=== PATIENT | male | born 1960 | race Caucasian/White ===

== ENCOUNTER 2022-05-09 13:01 | Emergency (ER) | payer SELFPAY ==
--- NOTE | 2022-05-09 14:12 | RAD REPORT ---
EXAM DESCRIPTION: CT - Stone Protocol - 05/09/2022 1:56 pm CLINICAL HISTORY: left flank pain COMPARISON: No comparisons TECHNIQUE: Axial 3 mm thick images were obtained without oral or IV contrast. The [id number] span s the entirety of the system including uppermost abdomen and lung bases. All CT scans are performed using dose optimization technique as appropriate and may include automated exposure control or mA/KV adjustment according to patient size. FINDINGS: No hydronephrosis is present and no obstructing ureteral calculi. A nonobstructing 3 mm ca lcification is present upper pole of the left kidney and in the midportion of the left kidney. No lenny picious renal masses. Isodense masses and pyelonephritis are not excluded on a stone protocol CT scan . No significant adrenal finding. No urinary bladder suspicious finding. Imaged portions of the liver, spleen and pancreas show no suspicious findings on non-contrast imaging . No gallbladder or biliary tree abnormality identified. Liver attenuation is borderline to mildly fa tty infiltrated. No suspicious bowel findings. Sigmoid colon is redundant extending into the left anterior upper abdom en. No mass or bulky lymphadenopathy. A small fat only left inguinal hernia is present. No free air, free fluid or inflammatory stranding. No acute bone finding identified. Mid and lower lumbar degenerative changes are present most pronounc ed at L4-5 and L5-S1. Small lucent 11 mm focus in the medial superior aspect of the right iliac coby t is present. No similar finding elsewhere. Significance is doubtful. IMPRESSION: No hydronephrosis, obstructing calculus or acute finding identified. Patient has 2 sm all nonobstructing calyx calculi in the left kidney. Isodense masses and pyelonephritis are not excluded on stone protocol technique. Lower lumbar disc, endplate and facet degenerative changes are present. No acute or pathologic bone p rocess suspected.
[2022-05-09 15:30] LABS: Absolute Lymphocytes (CBC) 2.8 K/uL (0.7-4.9); Hematocrit 47.2 % (39.6-49.0); MCV 87.4 fL (80-100); MPV 7.2 fL (7.6-11.3)
[2022-05-09 15:49] LABS: Albumin 3.9 g/dL (3.4-5.0); Bilirubin Total 0.7 mg/dL (0.2-1.0); Potassium 3.6 mmol/L (3.5-5.1); Protein, Total 8.5 g/dL (6.4-8.2)
[2022-05-09 15:54] LABS: Urine Blood Negative (Negative); Urine Glucose Negative (Negative); Urine Protein 1+ (Negative); Urine Specific Gravity 1.025 (1.005-1.030)
--- NOTE | 2022-05-09 18:02 | ER ---
Nurse's Notes [facility] Name: Philippe Judd Age: 62 yrs Sex: Male : 1960 Arrival Date: 05/09/2022 Time: 13:05 Bed 26 Private MD: Diagnosis: Flank Pain Presentation: 05/09 13:24 Chief complaint: Patient states: he has been having left sided flank pain for approx 6 ap3 days. patient denies painful urination or blood in urination. Coronavirus screen: At this time, the client does not indicate any symptoms associated with coronavirus-19. Ebola Screen: No symptoms or risks identified at this time. Initial Sepsis Screen: Does the patient meet any 2 criteria? No. Patient's initial sepsis screen is negative. Does the patient have a suspected source of infection? No. Patient's initial sepsis screen is negative. Risk Assessment: Do you want to hurt yourself or someone else? Patient reports no desire to harm self or others. Onset of symptoms was May 03, 2022. 13:24 Method Of Arrival: Ambulatory ap3 13:27 Acuity: MARK 3 ap3 Triage Assessment: 13:26 General: Appears in no apparent distress. Behavior is calm, cooperative. Pain: ap3 Complains of pain in right low back Pain began gradually, over the last 6 days. Neuro: Level of Consciousness is awake, alert, obeys commands, Oriented to person, place, time, situation. Cardiovascular: Patient's skin is warm and dry. Respiratory: Airway is patent Respiratory effort is even, unlabored, Respiratory pattern is regular, symmetrical. GI: Reports constipation, nausea. : No signs and/or symptoms were reported regarding the genitourinary system. Historical: - Allergies: 13:29 No Known Allergies; ap3 - Home Meds: 13:29 None [Active]; ap3 - PMHx: 13:26 None; ap3 - Immunization history:: Client reports receiving the 2nd dose of the Covid vaccine. - Social history:: Smoking status: Patient reports use of chewing tobacco. Screenin:35 Abuse screen: Denies threats or abuse. Nutritional screening: No deficits noted. jb4 Tuberculosis screening: No symptoms or risk factors identified. Fall Risk None identified. Assessment: 15:40 General: Appears in no apparent distress. uncomfortable, Behavior is calm, cooperative, jb4 appropriate for age. Pain: Complains of pain in posterior aspect of left lateral abdomen Pain does not radiate. Pain currently is 6 out of 10 on a pain scale. Neuro: Level of Consciousness is awake, alert, obeys commands, Oriented to person, place, time, situation. Cardiovascular: Patient's skin is warm and dry. Respiratory: Airway is patent Respiratory effort is even, unlabored, Respiratory pattern is regular, symmetrical. Derm: Skin is intact, Skin is pink, warm \T\ dry. Musculoskeletal: Circulation, motion, and sensation intact. Range of motion: intact in all extremities. 16:35 Reassessment: Patient appears in no apparent distress at this time. Patient and/or jb4 family updated on plan of care and expected duration. Pain level reassessed. Patient is alert, oriented x 3, equal unlabored respirations, skin warm/dry/pink. 17:43 Reassessment: Patient appears in no apparent distress at this time. Patient and/or jb4 family updated on plan of care and expected duration. Pain level reassessed. Patient is alert, oriented x 3, equal unlabored respirations, skin warm/dry/pink. 18:29 Reassessment: Patient appears in no apparent distress at this time. Patient and/or jb4 family updated on plan of care and expected duration. Pain level reassessed. Patient is alert, oriented x 3, equal unlabored respirations, skin warm/dry/pink. Vital Signs: 13:27 Pulse 86; Resp 16; Temp 98.4; Pulse Ox 98% ; Weight 108.86 kg; Height 5 ft. 8 in. ap3 (172.72 cm); Pain 4/10; 13:29 BP 145 / 75; ap3 16:35 BP 170 / 79; Pulse 77; Resp 16; Pulse Ox 93% on R/A; jb4 17:30 BP 173 / 89; Pulse 78; Resp 16; Pulse Ox 96% on R/A; jb4 13:27 Body Mass Index 36.49 (108.86 kg, 172.72 cm) ap3 ED Course: 13:05 Patient arrived in ED. rg4 13:25 Myles Ko PA is PHCP. jmm 13:25 Andrei Murguia MD is Attending Physician. jm 13:29 Triage completed. ap3 13:58 CT Stone Protocol In Process Unspecified. EDMS 15:21 Inserted saline lock: 20 gauge in right antecubital area, using aseptic technique. oj Blood collected. 15:22 CBC with Diff Sent. oj 15:23 CMP Sent. oj 15:23 Lipase Sent. oj 16:35 Teofilo Walsh, RN is Primary Nurse. jb4 16:35 Patient has correct armband on for positive identification. Call light in reach. Side jb4 rails up X 1. Client placed on continuous cardiac and pulse oximetry monitoring. NIBP monitoring applied. 18:29 No provider procedures requiring assistance completed. IV discontinued, intact, jb4 bleeding controlled, No redness/swelling at site. Pressure dressing applied. Administered Medications: 18:19 Drug: Ketorolac 30 mg Route: IVP; Site: left antecubital; jb4 18:19 Follow up: Response: Medication administered at discharge. jb4 Medication: 16:35 VIS not applicable for this client. jb4 Outcome: 18:02 Discharge ordered by . arturo 18:29 Discharged to home ambulatory. jb4 18:29 Condition: stable 18:29 Discharge instructions given to patient, Instructed on discharge instructions, follow up and referral plans. medication usage, Demonstrated understanding of instructions, follow-up care, medications, Prescriptions given X 2. 18:30 Patient left the ED. jb4 Signatures: Dispatcher [employer] EDPR Myles Ko PA PA jmm Garcia, Rubi rg4 Teofilo Walsh, RN RN jb4 Yumiko Jeffers RN RN ap3 Elysia Carlin othaddeus
--- NOTE | 2022-05-09 18:03 | EDPHYS ---
Physician Documentation [facility] Name: Philippe Judd Age: 62 yrs Sex: Male : 1960 Arrival Date: 05/09/2022 Time: 13:05 Bed 26 Private MD: ED Physician Andrei Murguia HPI: 05/09 13:25 This 62 yrs old Male presents to ER via Ambulatory with complaints of Flank Pain. jmm 13:25 The patient complains of pain in the left flank. The pain radiates. Onset: The jmm symptoms/episode began/occurred gradually, 6 day(s) ago. Modifying factors: The symptoms are alleviated by change of position, the symptoms are aggravated by nothing. Associated signs and symptoms: Pertinent positives: nausea, vomiting, Pertinent negatives: dysuria. The patient has not experienced similar symptoms in the past. Historical: - Allergies: 13:29 No Known Allergies; ap3 - Home Meds: 13:29 None [Active]; ap3 - PMHx: 13:26 None; ap3 - Immunization history:: Client reports receiving the 2nd dose of the Covid vaccine. - Social history:: Smoking status: Patient reports use of chewing tobacco. ROS: 13:25 Constitutional: Negative for fever, chills, and weight loss, Cardiovascular: Negative jmm for chest pain, palpitations, and edema, Respiratory: Negative for shortness of breath, cough, wheezing, and pleuritic chest pain. 13:25 Abdomen/GI: Positive for nausea. 13:25 Back: Positive for flank pain, on the left. 13:25 All other systems are negative. Exam: 13:25 Constitutional: This is a well developed, well nourished patient who is awake, alert, jmm and in no acute distress. Head/Face: atraumatic. Eyes: EOMI, no conjunctival erythema appreciated ENT: Moist Mucus Membranes Neck: Trachea midline, Supple Chest/axilla: Normal chest wall appearance and motion. Cardiovascular: Regular rate and rhythm. No edema appreciated Respiratory: Normal respirations, no respiratory distress appreciated 13:25 Back: Normal ROM Skin: General appearance color normal MS/ Extremity: Moves all extremities, no obvious deformities appreciated, no edema noted to the lower extremities Neuro: Awake and alert Psych: Behavior is normal, Mood is normal, Patient is cooperative and pleasant Vital Signs: 13:27 Pulse 86; Resp 16; Temp 98.4; Pulse Ox 98% ; Weight 108.86 kg; Height 5 ft. 8 in. ap3 (172.72 cm); Pain 4/10; 13:29 BP 145 / 75; ap3 16:35 BP 170 / 79; Pulse 77; Resp 16; Pulse Ox 93% on R/A; jb4 17:30 BP 173 / 89; Pulse 78; Resp 16; Pulse Ox 96% on R/A; jb4 13:27 Body Mass Index 36.49 (108.86 kg, 172.72 cm) ap3 MDM: 13:48 Patient medically screened. [facility] 18:01 Data reviewed: vital signs, nurses notes. Counseling: I had a detailed discussion with [facility] the patient and/or guardian regarding: the historical points, exam findings, and any diagnostic results supporting the discharge/admit diagnosis, the need for outpatient follow up, to return to the emergency department if symptoms worsen or persist or if there are any questions or concerns that arise at home. ED course: Patient advised to follow up with pcp for further evaluation. patient understood and agrees with the plan of care. . 05/09 13:25 Order name: CBC with Diff; Complete Time: 15:40 [facility] 05/09 13:25 Order name: CMP; Complete Time: 15:57 [facility] 05/09 13:25 Order name: Lipase; Complete Time: 15:57 [facility] 05/09 13:26 Order name: CT Stone Protocol; Complete Time: 14:13 [facility] 05/09 15:54 Order name: Urine Dipstick-Ancillary; Complete Time: 15:57 [facility] 05/09 13:25 Order name: IV Saline Lock; Complete Time: 15:23 [facility] 05/09 13:25 Order name: Labs collected and sent; Complete Time: 15:23 [facility] 05/09 13:25 Order name: Urine Dipstick-Ancillary (obtain specimen); Complete Time: 16:13 [facility] Administered Medications: 18:19 Drug: Ketorolac 30 mg Route: IVP; Site: left antecubital; [facility] 18:19 Follow up: Response: Medication administered at discharge. jb4 Disposition: 05/10 07:32 Co-signature as Attending Physician, Andrei Murguia MD. rn Disposition Summary: 05/09/22 18:02 Discharge Ordered Location: Home [facility] Condition: Stable jm Diagnosis - Flank Pain [facility] Followup: jmm - With: Private Physician - When: 2 - 3 days - Reason: Recheck today's complaints, Continuance of care, Re-evaluation by your physician Discharge Instructions: - Discharge Summary Sheet jm - Flank Pain, Adult jm Forms: - Medication Reconciliation Form [facility] - Thank You Letter [facility] - Antibiotic Education [facility] - Prescription Opioid Use [facility] Prescriptions: - Diclofenac Sodium 75 mg Oral tablet,delayed release (DR/EC) - take 1 tablet by ORAL route 2 times per day; 10 tablet; Refills: 0, Product [facility] Selection Permitted - orphenadrine citrate 100 mg Oral Tablet Sustained Release - take 1 tablet by ORAL route 2 times per day As needed; 20 tablet; Refills: 0, [facility] Product Selection Permitted Signatures: Dispatcher [employer] Myles Peterson PA PA [facility] Andrei Murguia MD MD rn Bryson, James RN RN jb4 Yumiko Jeffers RN RN ap3
[2022-05-09] MEDS ORDERED: KETOROLAC 30 MG/ML INJ ONE (18:24)
[2022-05-09 18:44] VITALS: TEMP 98.4
[2022-05-09 18:48] VITALS: BP 173/89; O2SAT 96
== END 2022-05-09 18:30 | disposition home or self-care (01) ==
LOC: ER 13:01
DX: R10.9 Unspecified abdominal pain (principal); R11.0 Nausea; F17.220 Nicotine dependence, chewing tobacco, uncomplicated
CPT/HCPCS: 36415; 74176; 76377; 80053; 81003; 83690; 85025; 96374; 99284